=== PATIENT | male | born 1970 | race Caucasian/White ===

== ENCOUNTER 2018-05-02 18:15 | Emergency (ER) | payer SELFPAY ==
[2018-05-02 18:32] VITALS: BP 175/94; PULSE 105; RESP 16; TEMP 97.4; O2SAT 99
[2018-05-02 18:51] VITALS: BMI 29.1
[2018-05-02] MEDS ORDERED: Oxycodone/Acetaminophen 5/325 mg Tab PO STA (20:10)
[2018-05-02] MEDS ORDERED: TDAP Vaccine 0.5 mL Syr IM ONE (20:10)
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
== END 2018-05-03 05:23 | disposition left against medical advice (07) ==
LOC: ED 18:15
DX: S05.91XA Unspecified injury of right eye and orbit, initial encounter (principal); Y04.0XXA Assault by unarmed brawl or fight, initial encounter; Y92.410 Unspecified street and highway as the place of occurrence of the external cause; F17.210 Nicotine dependence, cigarettes, uncomplicated; I10 Essential (primary) hypertension; Z23 Encounter for immunization

== ENCOUNTER 2018-12-23 09:28 | Emergency (ER) | payer OTHER ==
[2018-12-23 09:33] VITALS: RESP 18; BMI 27.4
[2018-12-23] MEDS ORDERED: Sodium Chloride 0.9% 1,000 ML IV STA (09:48)
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
[2018-12-23 10:36] LABS: PH,URINE 6.5 (4.7-8.0); URINE BILIRUBIN NEGATIVE (NEGATIVE); URINE BLOOD TRACE-LYSED (NEGATIVE); URINE GLUCOSE (UA) >=1000 mg/dL (NEGATIVE); URINE LEUKOCYTE ESTERASE NEGATIVE Leu/uL (NEGATIVE); URINE PROTEIN 100 mg/dL (<30 mg/dL); URINE UROBILINOGEN 0.2 E.U./dL (<1 E.U./dL)
[2018-12-23 10:37] LABS: URINE APPEARANCE CLEAR (CLEAR); URINE COLOR YELLOW (YELLOW)
--- NOTE | 2018-12-23 10:42 | US ---
Date of service: 12/23/2018 HISTORY: RUQ pain x 2 days, nausea/vomiting COMPARISON: None. TECHNIQUE: Sonographic evaluation of the right upper quadrant of the abdomen. FINDINGS: LIVER: Measures 18.5 cm in length. There is diffuse increased echogenicity of the liver parenchyma. No mass. No intrahepatic bile duct dilatation. GALLBLADDER: There is a solitary 9 mm gallstone. No wall thickening or pericholecystic fluid. Sonographic Amin's sign is negative. COMMON BILE DUCT: Measures 5.3 mm. No stones. No dilatation. PANCREAS: Obscured by bowel gas. RIGHT KIDNEY: Measures 14.2 cm in length. Normal echogenicity. No hydronephrosis or nephrolithiasis. There is an extrarenal pelvis. AORTA: No aneurysmal dilatation. IVC: Unremarkable. OTHER FINDINGS: None . IMPRESSION: Solitary 9 mm gallstone. Mild hepatomegaly and fatty liver.
[2018-12-23 10:45] LABS: URINE BACTERIA FEW /hpf; URINE WBC 0 - 2 /hpf (0-6)
--- NOTE | 2018-12-23 11:07 | CT ---
Date of service: 12/23/2018 PROCEDURE: CT Abdomen and Pelvis without intravenous contrast HISTORY: RUQ pain x 2 days, nausea/vomiting COMPARISON: None. TECHNIQUE: Technique. Contrast dose: Radiation dose: Total exam DLP = 658.2 mGy-cm. This CT exam was performed using one or more of the following dose reduction techniques: Automated exposure control, adjustment of the mA and/or kV according to patient size, and/or use of iterative reconstruction technique. FINDINGS: LOWER THORAX: Unremarkable. LIVER: Unremarkable. No gross lesion or ductal dilatation. GALLBLADDER AND BILE DUCTS: Unremarkable. PANCREAS: Unremarkable. No gross lesion or ductal dilatation. SPLEEN: Unremarkable. ADRENALS: Unremarkable. No mass. KIDNEYS AND URETERS: Moderate caliectasis but with severe dilatation of the right renal pelvis suggestive of a moderate to severe right UPJ obstruction. No definite evidence of ureteral calculus. VASCULATURE: Unremarkable. No aortic aneurysm. No aortic atherosclerotic calcification or mural plaque present. BOWEL: Unremarkable. No obstruction. No gross mural thickening. APPENDIX: Unremarkable. Normal appendix. PERITONEUM: Unremarkable. No free fluid. No free air. LYMPH NODES: Unremarkable. No enlarged lymph nodes. BLADDER: Unremarkable. REPRODUCTIVE: Prostate enlargement. BONES: No acute fracture. OTHER FINDINGS: None. IMPRESSION: Moderate caliectasis but with severe dilatation of the right renal pelvis suggestive of a moderate to severe right UPJ obstruction. No definite evidence of ureteral calculus.
[2018-12-23 11:52] VITALS: O2SAT 99
[2018-12-23 12:07] LABS: BASO # 0.04 K/mm3 (0.0-2.0); BASO % 0.5 % (0.0-3.0); EOS # 0.1 (0.0-0.7); EOS % 1.4 % (1.5-5.0); HEMOGLOBIN 15.2 g/dL (14.0-18.0); LYMPH # 1.9 (1.2-3.4); LYMPH % 21.7 % (22.0-35.0); MEAN CELL VOLUME 84.6 fl (80.0-105.0); MEAN CORPUSCULAR HEMOGLOBIN 28.9 pg (25.0-35.0); MEAN CORPUSCULAR HGB CONC 34.2 g/dl (31.0-37.0); MEAN PLATELET VOLUME 10.2 fl (7.0-11.0); MONO # 0.4 (0.1-0.6); MONO % 4.8 % (1.0-6.0); RBC 5.26 10^6/uL (3.5-6.1); RED CELL DISTRIBUTION WIDTH 12.7 % (11.5-14.5); WHITE BLOOD COUNT 8.8 10^3/uL (4.5-11.0)
[2018-12-23 12:19] LABS: ALB/GLOB RATIO 1.3 (1.1-1.8); ALBUMIN 3.8 g/dL (3.0-4.8); ALT/SGPT 23 U/L (7-56); AST/SGOT 23 U/L (17-59); BLOOD UREA NITROGEN 12 mg/dL (7-21); CALCIUM 9.1 mg/dL (8.4-10.5); GFR NON-AFRICAN AMERICAN > 60; LIPASE 98 U/L (23-300)
[2018-12-23 12:30] LABS: TROPONIN I < 0.01 ng/mL
[2018-12-23 13:11] VITALS: BP 126/77; PULSE 72; TEMP 98.3
== END 2018-12-23 13:10 | disposition home or self-care (01) ==
LOC: ED 09:28
DX: N13.5 Crossing vessel and stricture of ureter without hydronephrosis (principal); R10.11 Right upper quadrant pain; F17.210 Nicotine dependence, cigarettes, uncomplicated; I10 Essential (primary) hypertension; E11.9 Type 2 diabetes mellitus without complications
CPT/HCPCS: 74176; 76705; 80053; 81001; 82948; 83690; 83735; 84484; 85025; 96374; 96375; 99281; J1885; J2405; J7030